=== PATIENT | male | born 1965 | race Caucasian/White ===

== ENCOUNTER → 2017-12-16 | Outpatient (CLI) | payer OTHER ==
--- NOTE | 2017-12-24 12:04 | SLEEP ---
[address] [address] SLEEP STUDY REPORT Name: HANNA MONTANO Room: [facility].#: [id number] Admission: 12/16/17 Attend Phys: Physician not on staf Discharge: Date of : 61 Report #: [id number] THIS REPORT FOR: //name// CC: Physician staff RAVEN JAQUEZ This study has been reviewed in its entirety by a board certified sleep specialist DATE OF SERVICE: 12/16/2017 SPLIT NIGHT SLEEP STUDY. REQUESTING PHYSICIAN: PA. Bennie. A split night sleep study was performed. The patient has a history of sleep apnea, currently on CPAP at home. He has been having difficulty with his equipment and current pressure settings. Split study was performed in order to document the presence of sleep apnea prior to proceeding with a titration study. The patient's weight is 215 pounds. [place] sleepiness scale 16/24. The total study time was 397 minutes and total sleep time was 375 minutes. Sleep efficiency was 94%. He did have 24% of the time spent in REM sleep. During the diagnostic portion, he had a total sleep time of 124 minutes. 6% of that time was spent in REM sleep. He had 1 central apnea noted. There were 3 obstructive apneas. There were 17 hypopneas noted. This resulted in apnea-hypopnea index of 10.2 during the diagnostic portion. He appeared to have spent time sleeping in the right lateral position. He had no periodic limb movements noted during the diagnostic portion. Maximum heart rate was 106 beats per minute. Snoring was not noted. CPAP was started at 5 cm of water pressure. He was titrated up to 9 cm. There were 70 minutes sleeping on 9 cm of water pressure, apnea-hypopnea index of 4.3. During the titration study, there were 13 periodic limb movements noted, only 2 associated with an arousal. Maximum heart rate 101 beats per minute. O2 saturations remained greater than 90% during the titration study. IMPRESSION: This split night polysomnography does reveal evidence of obstructive sleep apnea with apnea-hypopnea index during the diagnostic portion of 10.2. It was much higher in REM sleep at 40.0. Use of CPAP at 9 cm of water pressure was beneficial at controlling the apneas and hypopneas. A ResMed AirFit F20 large full face mask was utilized. There was a ramp of 5 minutes and a C-Flex of +3. [place] [address] SLEEP STUDY REPORT Name: HANNA MONTANO Room: [facility]#: [id number] Admission: 12/16/17 Attend Phys: Physician not on staf Discharge: Date of : 61 Report #: [id number] RECOMMENDATIONS: [place] CPAP at 9 cm of water pressure. Reportedly, the settings and mask utilized were more comfortable for the patient. <ELECTRONICALLY SIGNED> By: Karli Childress MD 12/24/17 1204 [id number] Childress, /sangeetha
== END ==
LOC: M.SLEEPLAB 20:42
DX: G47.33 Obstructive sleep apnea (adult) (pediatric) (principal)